=== PATIENT | female | born 1990 | race American Indian/Alaskan Native ===

== ENCOUNTER 2017-07-19 19:23 | Observation (INO) | payer MEDICAID ==
[2017-07-19] MEDS ORDERED: Ketorolac 30 MG/ML SDV IVPUSH ONE (19:30)
[2017-07-19] MEDS ORDERED: Ondansetron 4 MG/2 ML SDV IVPUSH ONE ×2 (19:30→22:11)
[2017-07-19] MEDS: Sodium Chloride 0.9% 1,000 ML IV SCH ×2 (19:45→22:18)
[2017-07-19] MEDS ORDERED: Morphine 4 MG/ML Syringe IVPUSH ONE (20:08)
[2017-07-19] MEDS ORDERED: Sodium Chloride 0.9% 1,000 ML IV SCH (22:15)
[2017-07-19] MEDS ORDERED: Morphine 4 MG/ML Syringe ONE (22:18)
[2017-07-19] MEDS ORDERED: cefTRIAXone 1,000 MG in Sodium Chloride 0.9% 50 ML IV ONE (23:10)
[2017-07-19] MEDS ORDERED: Acetaminophen 325 MG Tab PO ONE (23:10)
--- NOTE | 2017-07-19 23:15 | EDM.PDOC ---
ED HPI GENERAL MEDICAL PROBLEM - General Chief Complaint: Flank Pain Stated Complaint: ABDOMINAL PAIN Time Seen by Provider: 07/19/17 20:00 Source of Information: Reports: Patient, Family History Limitations: Reports: No Limitations - History of Present Illness INITIAL COMMENTS - FREE TEXT/NARRATIVE: c/o R flank pain x 1h pt at [facility] with , felt fine earlier in the day, began to get pain in R flank that became increasing severe, came straight to ED walked into ED bend over in pain and moaning, felt better after Toradol but pain then came back, initially declined MS and then agreed to take it, however said it made her flushed and did not really want to take any more if at all possible h/o ureteral stone 4y ago CT abd/pelvis showed no acute findings, there were very small b/l inytrarenal stones, there was a 4.2 cm L adnexal hypodensity c/w L ovarian cyst on repeat abd exam, pt had more tenderness over the R kidney that the R groin labs c/w R pyelo with WBC 14.7, CRP 1.8 and moderate bacteria in urine WBC 14.7 c/w infection vs pain, curiously pt has had inc'd WBC the last 5 times it has been checked pt dehydration with S.G. > 1.030, ketones 15 there are inc'd LFTs of uncertain etiology, cannot exclude acute cholecystitis, will obtain a RUQ u/s in AM will admit d/t recurrent pain, dehydation and further evaluation of LLQ cyst and inc'd LFTs pt agrees, requested more Toradol as needed, preferred no MS RLQ pain Pain Score (Numeric/FACES): 10 - Related Data Allergies Allergy/AdvReac Type Severity Reaction Status Date / Time amantadine Allergy Rash Verified 03/16/15 12:40 Sulfa (Sulfonamide Allergy Rash Verified 07/19/17 21:02 Antibiotics) Home Meds: Home Meds Acetaminophen/oxyCODONE [Percocet 325-5 MG] 1 tab PO Q4H PRN #20 tablet [Rx] Ibuprofen [Motrin] 600 mg PO Q6H #30 tablet 03/17/15 [Rx] Past Medical History - Past Health History Medical/Surgical History: Denies Medical/Surgical History Gastrointestinal History: Reports: Diverticulosis Other Gastrointestinal History: per Genitourinary History: Reports: Renal Calculus, UTI, Recurrent [employer] History: Reports: , Spontaneous Other OB/BYN History: Gestational diabetes with last , gestational hypertension with third Musculoskeletal History: Reports: Back Pain, Chronic Other Musculoskeletal History: sciatica Neurological History: Reports: None Psychiatric History: Reports: None Endocrine/Metabolic History: Reports: Diabetes, Gestational Dermatologic History: Reports: Other (See Below) Other Dermatologic History: Tatoos left leg, left arm - Past Surgical History Female Surgical History: Reports: Section Social & Family History - Family History Family Medical History: Unobtainable - Tobacco Use Smoking Status *Q: Current Some Day Smoker Years of Tobacco use: 17 Packs/Tins Daily: 0.1 - Caffeine Use Caffeine Use: Reports: Soda - Recreational Drug Use Recreational Drug Use: No ED ROS GENERAL - Review of Systems Review Of Systems: See Below Constitutional: Reports: No Symptoms. Denies: Fever, Chills, Malaise, Weakness , Fatigue, Night Sweats, Diaphoresis, Decreased Appetite HEENT: Reports: No Symptoms Respiratory: Reports: No Symptoms Cardiovascular: Reports: No Symptoms Endocrine: Reports: No Symptoms GI/Abdominal: Reports: Abdominal Pain, Nausea. Denies: Diarrhea, Vomiting : Reports: No Symptoms Musculoskeletal: Reports: No Symptoms Skin: Reports: No Symptoms Neurological: Reports: No Symptoms Psychiatric: Reports: No Symptoms Hematologic/Lymphatic: Reports: No Symptoms Immunologic: Reports: No Symptoms ED EXAM, GI/ABD - Physical Exam Exam: See Below Exam Limited By: No Limitations General Appearance: Alert, WD/WN, Moderate Distress Eyes: Bilateral: Normal Appearance Ears: Normal External Exam, Hearing Grossly Normal Nose: Normal Inspection, Normal Mucosa, No Blood Throat/Mouth: Normal Inspection, Normal Voice, No Airway Compromise Head: Atraumatic, Normocephalic Neck: Normal Inspection, Supple, Non-Tender, Full Range of Motion Respiratory/Chest: No Respiratory Distress, Lungs Clear, Normal Breath Sounds, No Accessory Muscle Use, Chest Non-Tender Cardiovascular: Normal Peripheral Pulses, Regular Rate, Rhythm, No Edema, No Gallop, No Murmur, No Rub GI/Abdominal Exam: Soft, No Distention, No Mass, Other (1-2+ tender at R flank, 1+ tender at RLQ, no CVAT b/l, nl BS x 4) Back Exam: Normal Inspection, Full Range of Motion. No: CVA Tenderness (R), CVA Tenderness (L) Extremities: Normal Inspection, Non-Tender, No Pedal Edema, Normal Capillary Refill Neurological: Alert, Oriented, CN II-XII Intact, Normal Cognition, No Motor/ Sensory Deficits Psychiatric: Normal Affect, Normal Mood Skin Exam: Warm, Dry, Intact, Normal Color, No Rash Lymphatic: No Adenopathy Course - Vital Signs Last Recorded V/S: Last Vital Signs Temp 37.1 C 07/19/17 19:25 Pulse 85 07/19/17 19:25 Resp 20 07/19/17 19:25 BP 111/55 L 07/19/17 19:25 Pulse Ox 100 07/19/17 19:25 - Orders/Labs/Meds Orders: Active Orders 24 hr Category Date Time Status Abdomen Pelvis wo Cont [CT] Stat Exams 07/19/17 19:33 Taken CULTURE URINE [RM] Stat Lab 07/19/17 22:54 Ordered HCG QUALITATIVE,URINE [URCHEM] Stat Lab 07/19/17 20:55 Ordered URINALYSIS W/MICROSCOPIC [UA W/MICROSCOPIC] [URIN] Stat Lab 07/19/17 20:55 Ordered Sodium Chloride 0.9% [Normal Saline] 1,000 ml Med 07/19/17 19:30 Active IV ASDIRECTED Sodium Chloride 0.9% [Normal Saline] 1,000 ml Med 07/19/17 22:15 Active IV ASDIRECTED Medication Orders Sodium Chloride (Normal Saline) 1,000 mls @ 999 mls/hr IV ASDIRECTED CRISTI Last Infusion: 07/19/17 20:46 Dose: 999 mls/hr Admin: 07/19/17 19:45 Dose: 999 mls/hr Sodium Chloride (Normal Saline) 1,000 mls @ 999 mls/hr IV ASDIRECTED CRISTI Last Admin: 07/19/17 22:19 Dose: 999 mls/hr Labs: Laboratory Tests 07/19/17 07/19/17 07/19/17 Range/Units 19:45 19:45 19:45 WBC 14.7 H (4.5-12.0) X10-3/uL RBC 5.26 H (3.23-5.20) x10(6)uL Hgb 14.7 D (11.5-15.5) g/dL Hct 43.6 D (30.0-51.3) % MCV 82.9 (80-96) fL MCH 27.9 (27.7-33.6) pg MCHC 33.7 (32.2-35.4) g/dL RDW 12.7 (11.5-15.5) % Plt Count 425 H (125-369) X10(3)uL MPV 8.9 (7.4-10.4) fL Neut % (Auto) 46.4 (46-82) % Lymph % (Auto) 44.9 H (13-37) % Wirt % (Auto) 5.7 (4-12) % Eos % (Auto) 1 (1.0-5.0) % Baso % (Auto) 2 (0-2) % Neut # (Auto) 6.8 (1.6-8.3) # Lymph # (Auto) 6.6 H (0.6-5.0) # Wirt # (Auto) 0.8 (0.0-1.3) # Eos # (Auto) 0.2 (0.0-0.8) # Baso # (Auto) 0.3 H (0.0-0.2) # Sodium 141 (135-145) mmol/L Potassium 3.9 (3.5-5.3) mmol/L Chloride 106 (100-110) mmol/L Carbon Dioxide 21 (21-32) mmol/L BUN 18 (7-18) mg/dL Creatinine 0.9 (0.55-1.02) mg/dL Est Cr Clr Drug Dosing TNP Estimated GFR (MDRD) > 60 (>60) BUN/Creatinine Ratio 20.0 (9-20) Glucose 160 H (80-116) mg/dL Calcium 8.9 (8.6-10.2) mg/dL Total Bilirubin 0.3 (0.1-1.3) mg/dL AST 43 H (5-25) IU/L ALT 72 H (12-36) U/L Alkaline Phosphatase 115 H (56-112) IU/L C-Reactive Protein 1.8 H (0.5-0.9) mg/dL Total Protein 8.0 (6.0-8.0) g/dL Albumin 3.9 (3.5-5.2) g/dL Globulin 4.1 g/dL Albumin/Globulin Ratio 1.0 Amylase (25-115) U/L Urine Color (YELLOW) Urine Appearance (CLEAR) Urine pH (5.0-6.5) Ur Specific Mcclure (1.010-1.025) Urine Protein (NEGATIVE) mg/dL Urine Glucose (UA) (NEGATIVE) mg/dL Urine Ketones (NEGATIVE) mg/dL Urine Occult Blood (NEGATIVE) Urine Nitrite (NEGATIVE) Urine Bilirubin (NEGATIVE) Urine Urobilinogen (NEGATIVE) mg/dL Ur Leukocyte Esterase (NEGATIVE) Urine RBC (0) Urine WBC (0) Ur Squamous Epith Cells (NS,R,O) Urine Bacteria (NS) Urine Mucus (NS) Urine HCG, Qual (NEGATIVE) 07/19/17 07/19/17 07/19/17 Range/Units 19:45 20:55 20:55 WBC (4.5-12.0) X10-3/uL RBC (3.23-5.20) x10(6)uL Hgb (11.5-15.5) g/dL Hct (30.0-51.3) % MCV (80-96) fL MCH (27.7-33.6) pg MCHC (32.2-35.4) g/dL RDW (11.5-15.5) % Plt Count (125-369) X10(3)uL MPV (7.4-10.4) fL Neut % (Auto) (46-82) % Lymph % (Auto) (13-37) % Wirt % (Auto) (4-12) % Eos % (Auto) (1.0-5.0) % Baso % (Auto) (0-2) % Neut # (Auto) (1.6-8.3) # Lymph # (Auto) (0.6-5.0) # Wirt # (Auto) (0.0-1.3) # Eos # (Auto) (0.0-0.8) # Baso # (Auto) (0.0-0.2) # Sodium (135-145) mmol/L Potassium (3.5-5.3) mmol/L Chloride (100-110) mmol/L Carbon Dioxide (21-32) mmol/L BUN (7-18) mg/dL Creatinine (0.55-1.02) mg/dL Est Cr Clr Drug Dosing Estimated GFR (MDRD) (>60) BUN/Creatinine Ratio (9-20) Glucose (80-116) mg/dL Calcium (8.6-10.2) mg/dL Total Bilirubin (0.1-1.3) mg/dL AST (5-25) IU/L ALT (12-36) U/L Alkaline Phosphatase (56-112) IU/L C-Reactive Protein (0.5-0.9) mg/dL Total Protein (6.0-8.0) g/dL Albumin (3.5-5.2) g/dL Globulin g/dL Albumin/Globulin Ratio Amylase 33 (25-115) U/L Urine Color Yellow (YELLOW) Urine Appearance Slightly cloudy (CLEAR) Urine pH 5.0 (5.0-6.5) Ur Specific Mcclure 1.030 H (1.010-1.025) Urine Protein Negative (NEGATIVE) mg/dL Urine Glucose (UA) Normal (NEGATIVE) mg/dL Urine Ketones 15 H (NEGATIVE) mg/dL Urine Occult Blood Negative (NEGATIVE) Urine Nitrite Negative (NEGATIVE) Urine Bilirubin Small H (NEGATIVE) Urine Urobilinogen 1 H (NEGATIVE) mg/dL Ur Leukocyte Esterase Negative (NEGATIVE) Urine RBC 0-5 (0) Urine WBC 0-5 (0) Ur Squamous Epith Cells Occasional (NS,R,O) Urine Bacteria Moderate H (NS) Urine Mucus Moderate H (NS) Urine HCG, Qual Negative (NEGATIVE) Meds: Medications Generic Name Dose Route Start Last Admin Trade Name Freq PRN Reason Stop Dose Admin Sodium Chloride 1,000 mls @ 999 mls/hr 07/19/17 19:30 07/19/17 20:46 Normal Saline IV Infused ASDIRECTED CRISTI Infusion Sodium Chloride 1,000 mls @ 999 mls/hr 07/19/17 22:15 07/19/17 22:19 Normal Saline IV 999 mls/hr ASDIRECTED CRISTI Administration Discontinued Medications Generic Name Dose Route Start Last Admin Trade Name Freq PRN Reason Stop Dose Admin Ketorolac Tromethamine 30 mg 07/19/17 19:30 07/19/17 19:45 Toradol IVPUSH 07/19/17 19:31 30 mg ONETIME ONE Administration Morphine Sulfate 4 mg 07/19/17 20:08 07/19/17 22:20 Morphine IVPUSH 07/19/17 20:09 4 mg ONETIME ONE Administration Morphine Sulfate Confirm 07/19/17 22:18 07/19/17 22:21 Morphine Administered 07/19/17 22:19 Not Given Dose 4 mg .ROUTE .STK-MED ONE Ondansetron HCl 4 mg 07/19/17 19:30 07/19/17 19:45 Zofran IVPUSH 07/19/17 19:31 4 mg ONETIME ONE Administration Ondansetron HCl 4 mg 07/19/17 22:11 07/19/17 22:18 Zofran IVPUSH 07/19/17 22:12 4 mg ONETIME ONE Administration Departure - Departure Time of Disposition: 23:17 Disposition: Refer to Observation Condition: Good Clinical Impression: Pyelonephritis, Dehydration, Elevated liver function tests, Adnexal mass, Bilateral nephrolithiasis, Elevated C-reactive protein (CRP) - Discharge Information Referrals: PCP,None [Primary Care Provider] - - My Orders Last 24 Hours: My Active Orders 07/19/17 19:30 Sodium Chloride 0.9% [Normal Saline] 1,000 ml IV ASDIRECTED 07/19/17 19:33 Abdomen Pelvis wo Cont [CT] Stat 07/19/17 20:55 HCG QUALITATIVE,URINE [URCHEM] Stat URINALYSIS W/MICROSCOPIC [UA W/MICROSCOPIC] [URIN] Stat 07/19/17 22:15 Sodium Chloride 0.9% [Normal Saline] 1,000 ml IV ASDIRECTED 07/19/17 22:54 CULTURE URINE [RM] Stat - Assessment/Plan Last 24 Hours: My Active Orders 07/19/17 19:30 Sodium Chloride 0.9% [Normal Saline] 1,000 ml IV ASDIRECTED 07/19/17 19:33 Abdomen Pelvis wo Cont [CT] Stat 07/19/17 20:55 HCG QUALITATIVE,URINE [URCHEM] Stat URINALYSIS W/MICROSCOPIC [UA W/MICROSCOPIC] [URIN] Stat 07/19/17 22:15 Sodium Chloride 0.9% [Normal Saline] 1,000 ml IV ASDIRECTED 07/19/17 22:54 CULTURE URINE [RM] Stat
[2017-07-19] MEDS ORDERED: cefTRIAXone 1,000 MG VIAL IV ONE (23:45)
[2017-07-20] MEDS ORDERED: Acetaminophen 325 MG Tab PO PRN (00:19)
[2017-07-20] MEDS ORDERED: Zolpidem 5 MG Tab PO PRN (00:19)
[2017-07-20] MEDS ORDERED: Ondansetron 4 MG/2 ML SDV IV PRN (00:19)
[2017-07-20] MEDS ORDERED: Sodium Chloride 0.9% 1,000 ML IV SCH (00:30)
[2017-07-20] MEDS: Ketorolac 30 MG/ML SDV IVPUSH SCH ×3 (01:43→12:46)
[2017-07-20] MEDS ORDERED: Ciprofloxacin 500 MG Tab PO SCH (09:00)
[2017-07-20 09:25] VITALS: BP 107/68
--- NOTE | 2017-07-20 12:56 | PCM.HP ---
H&P History of Present Illness - General Date of Service: 07/20/17 Admit Problem/Dx: Right sided abdominal pain, question pyelonephritis Source of Information: Patient, Family, Provider History Limitations: Reports: No Limitations, Other (No previous records available from her primary care clinic.) - History of Present Illness Initial Comments - Free Text/Narative: Chief complaint: Right mid to lower quadrant abdominal pain. History of present illness: Patient is a 26-year-old female who was feeling in her usual state of good health yesterday. She and her significant other were here from [place], [place] doing some shopping in [place] and she had the acute onset of right mid to lower abdominal pain which was stabbing in nature. The pain was exquisitely painful. She has had this before with previous ruptured ovarian cysts and the pain was so severe she had exquisite nausea and vomiting 1. She had no diarrhea. She presented to the emergency department and extensive evaluation showed a negative CT abdomen and pelvis, bacteria and mucus in the urine, normal vital signs, and an elevated white count at 14.7. The patient was recommended for admission overnight for observation and initial treatment of presumptive pyelonephritis. Past medical history: Patient has a history of kidney stones and had some potassium of 4 years ago. She's never had any pain with stones passing. Never required any treatment for this. She has a history of emergency room visit March 2017 with similar symptoms and a hospitalization in May 2017 which she tells me was found to be a ruptured ovarian cyst. She previously used Mirena but this was taken out a year ago. Social history: The patient previously smoked a half pack of cigarettes per day but tells me she is quitting. She denies alcohol use. She used to work as a fountain server. She has 5 children, 4 who live with her in [place]. She has a significant other who is here with her today. Family history: The patient's grandfather and cousin had leukemia. The patient has heart disease and diabetes on her mother's side of the family. Otherwise relatives are healthy. Hospital course: Patient did well overnight. Pain was controlled with Toradol and she was eating and drinking. No nausea or vomiting. Ultrasound in the morning of the abdomen and pelvis showed a left ovarian cyst the size of a golf ball and free fluid in the pelvis consistent with a right adnexal area that looked like it was a previous cyst which had ruptured. Official reports are still pending at the time of this dictation. Date of discharge: 07/20/2017. Discharge instructions: Follow-up with your PCP within the week. You should discuss treatment options with Dr. Ashley Bailey for your fatty infiltration of the liver and your ovarian cysts. She can also help you with smoking cessation. RLQ pain Pain Score (Numeric/FACES): 7 - Related Data Allergies/Adverse Reactions: Allergies Allergy/AdvReac Type Severity Reaction Status Date / Time amantadine Allergy Rash Verified 03/16/15 12:40 Sulfa (Sulfonamide Allergy Rash Verified 07/19/17 21:02 Antibiotics) Home Medications: Home Meds Acetaminophen/oxyCODONE [Percocet 325-5 MG] 1 tab PO Q4H PRN #20 tablet [Rx] Ibuprofen [Motrin] 600 mg PO Q6H #30 tablet 03/17/15 [Rx] Past Medical History - Past Health History Medical/Surgical History: Denies Medical/Surgical History Gastrointestinal History: Reports: Diverticulosis Other Gastrointestinal History: per Genitourinary History: Reports: Renal Calculus, UTI, Recurrent [employer]ACH[employer]OR History: Reports: , Spontaneous Other OB/BYN History: Gestational diabetes with last , gestational hypertension with third Musculoskeletal History: Reports: Back Pain, Chronic Other Musculoskeletal History: sciatica Neurological History: Reports: None Psychiatric History: Reports: None Endocrine/Metabolic History: Reports: Diabetes, Gestational Dermatologic History: Reports: Other (See Below) Other Dermatologic History: Tatoos left leg, left arm - Past Surgical History Female Surgical History: Reports: Section Social & Family History - Family History Family Medical History: Unobtainable Respiratory: Reports: COPD Other Respiratory Family Hisory: mother passed of disease - Tobacco Use Smoking Status *Q: Current Some Day Smoker Years of Tobacco use: 17 Packs/Tins Daily: 0 Used Tobacco, but Quit: No Tobacco Use Comment: has quite for 6months at one time Second Hand Smoke Exposure: No - Caffeine Use Caffeine Use: Reports: Soda Other Caffeine Use: one per day - Recreational Drug Use Recreational Drug Use: No H&P Review of Systems - Review of Systems: Review Of Systems: ROS reveals no pertinent complaints other than HPI. (she denies dysuria, frequency, urgency, flank pain, currently feels well. The only residual symptom she has is a slight achiness in the right lower quadrant.) Exam - Exam Exam: See Below - Vital Signs Vital Signs: Last Vital Signs Temp 36.9 C 07/20/17 08:23 Pulse 89 07/20/17 08:23 Resp 16 07/20/17 08:23 BP 107/68 07/20/17 08:23 Pulse Ox 97 07/20/17 08:23 Weight: 109.543 kg - Exam General: Alert, Oriented, Cooperative HEENT: PERRLA, Conjunctiva Clear Neck: Supple Lungs: Clear to Auscultation, Normal Respiratory Effort Cardiovascular: Regular Rate, Regular Rhythm, Normal S1, Normal S2 GI/Abdominal Exam: Normal Bowel Sounds, Soft, Non-Tender (minimally tender right lower/mid quadrant.), No Organomegaly, No Distention, Other (obese) Extremities: No Pedal Edema - Patient Data Lab Results Last 24 hrs: Laboratory Results - last 24 hr 07/19/17 07/19/17 07/19/17 Range/Units 19:45 19:45 19:45 WBC 14.7 H (4.5-12.0) X10-3/uL RBC 5.26 H (3.23-5.20) x10(6)uL Hgb 14.7 D (11.5-15.5) g/dL Hct 43.6 D (30.0-51.3) % MCV 82.9 (80-96) fL MCH 27.9 (27.7-33.6) pg MCHC 33.7 (32.2-35.4) g/dL RDW 12.7 (11.5-15.5) % Plt Count 425 H (125-369) X10(3)uL MPV 8.9 (7.4-10.4) fL Neut % (Auto) 46.4 (46-82) % Lymph % (Auto) 44.9 H (13-37) % Vance % (Auto) 5.7 (4-12) % Eos % (Auto) 1 (1.0-5.0) % Baso % (Auto) 2 (0-2) % Neut # (Auto) 6.8 (1.6-8.3) # Lymph # (Auto) 6.6 H (0.6-5.0) # Vance # (Auto) 0.8 (0.0-1.3) # Eos # (Auto) 0.2 (0.0-0.8) # Baso # (Auto) 0.3 H (0.0-0.2) # Add Manual Diff Neutrophils % (Manual) (46-82) % Band Neutrophils % (0-6) % Lymphocytes % (Manual) (13-37) % Monocytes % (Manual) (4-12) % Eosinophils % (Manual) (0-5) % Sodium 141 (135-145) mmol/L Potassium 3.9 (3.5-5.3) mmol/L Chloride 106 (100-110) mmol/L Carbon Dioxide 21 (21-32) mmol/L Anion Gap BUN 18 (7-18) mg/dL Creatinine 0.9 (0.55-1.02) mg/dL Est Cr Clr Drug Dosing TNP Estimated GFR (MDRD) > 60 (>60) BUN/Creatinine Ratio 20.0 (9-20) Glucose 160 H (80-116) mg/dL Calcium 8.9 (8.6-10.2) mg/dL Total Bilirubin 0.3 (0.1-1.3) mg/dL AST 43 H (5-25) IU/L ALT 72 H (12-36) U/L Alkaline Phosphatase 115 H (56-112) IU/L C-Reactive Protein 1.8 H (0.5-0.9) mg/dL Total Protein 8.0 (6.0-8.0) g/dL Albumin 3.9 (3.5-5.2) g/dL Globulin 4.1 g/dL Albumin/Globulin Ratio 1.0 Amylase (25-115) U/L Urine Color (YELLOW) Urine Appearance (CLEAR) Urine pH (5.0-6.5) Ur Specific Galliano (1.010-1.025) Urine Protein (NEGATIVE) mg/dL Urine Glucose (UA) (NEGATIVE) mg/dL Urine Ketones (NEGATIVE) mg/dL Urine Occult Blood (NEGATIVE) Urine Nitrite (NEGATIVE) Urine Bilirubin (NEGATIVE) Urine Urobilinogen (NEGATIVE) mg/dL Ur Leukocyte Esterase (NEGATIVE) Urine RBC (0) Urine WBC (0) Ur Squamous Epith Cells (NS,R,O) Urine Bacteria (NS) Urine Mucus (NS) Urine HCG, Qual (NEGATIVE) 07/19/17 07/19/17 07/19/17 Range/Units 19:45 20:55 20:55 WBC (4.5-12.0) X10-3/uL RBC (3.23-5.20) x10(6)uL Hgb (11.5-15.5) g/dL Hct (30.0-51.3) % MCV (80-96) fL MCH (27.7-33.6) pg MCHC (32.2-35.4) g/dL RDW (11.5-15.5) % Plt Count (125-369) X10(3)uL MPV (7.4-10.4) fL Neut % (Auto) (46-82) % Lymph % (Auto) (13-37) % Vance % (Auto) (4-12) % Eos % (Auto) (1.0-5.0) % Baso % (Auto) (0-2) % Neut # (Auto) (1.6-8.3) # Lymph # (Auto) (0.6-5.0) # Vance # (Auto) (0.0-1.3) # Eos # (Auto) (0.0-0.8) # Baso # (Auto) (0.0-0.2) # Add Manual Diff Neutrophils % (Manual) (46-82) % Band Neutrophils % (0-6) % Lymphocytes % (Manual) (13-37) % Monocytes % (Manual) (4-12) % Eosinophils % (Manual) (0-5) % Sodium (135-145) mmol/L Potassium (3.5-5.3) mmol/L Chloride (100-110) mmol/L Carbon Dioxide (21-32) mmol/L Anion Gap BUN (7-18) mg/dL Creatinine (0.55-1.02) mg/dL Est Cr Clr Drug Dosing Estimated GFR (MDRD) (>60) BUN/Creatinine Ratio (9-20) Glucose (80-116) mg/dL Calcium (8.6-10.2) mg/dL Total Bilirubin (0.1-1.3) mg/dL AST (5-25) IU/L ALT (12-36) U/L Alkaline Phosphatase (56-112) IU/L C-Reactive Protein (0.5-0.9) mg/dL Total Protein (6.0-8.0) g/dL Albumin (3.5-5.2) g/dL Globulin g/dL Albumin/Globulin Ratio Amylase 33 (25-115) U/L Urine Color Yellow (YELLOW) Urine Appearance Slightly cloudy (CLEAR) Urine pH 5.0 (5.0-6.5) Ur Specific Galliano 1.030 H (1.010-1.025) Urine Protein Negative (NEGATIVE) mg/dL Urine Glucose (UA) Normal (NEGATIVE) mg/dL Urine Ketones 15 H (NEGATIVE) mg/dL Urine Occult Blood Negative (NEGATIVE) Urine Nitrite Negative (NEGATIVE) Urine Bilirubin Small H (NEGATIVE) Urine Urobilinogen 1 H (NEGATIVE) mg/dL Ur Leukocyte Esterase Negative (NEGATIVE) Urine RBC 0-5 (0) Urine WBC 0-5 (0) Ur Squamous Epith Cells Occasional (NS,R,O) Urine Bacteria Moderate H (NS) Urine Mucus Moderate H (NS) Urine HCG, Qual Negative (NEGATIVE) 07/20/17 07/20/17 07/20/17 Range/Units 06:25 06:25 06:25 WBC 15.5 H (4.5-12.0) X10-3/uL RBC 4.14 (3.23-5.20) x10(6)uL Hgb 11.9 (11.5-15.5) g/dL Hct 34.4 (30.0-51.3) % MCV 83.0 (80-96) fL MCH 28.8 (27.7-33.6) pg MCHC 34.7 (32.2-35.4) g/dL RDW 13.0 (11.5-15.5) % Plt Count 276 (125-369) X10(3)uL MPV 8.9 (7.4-10.4) fL Neut % (Auto) (46-82) % Lymph % (Auto) (13-37) % Vance % (Auto) (4-12) % Eos % (Auto) (1.0-5.0) % Baso % (Auto) (0-2) % Neut # (Auto) (1.6-8.3) # Lymph # (Auto) (0.6-5.0) # Vance # (Auto) (0.0-1.3) # Eos # (Auto) (0.0-0.8) # Baso # (Auto) (0.0-0.2) # Add Manual Diff Yes Neutrophils % (Manual) 72 (46-82) % Band Neutrophils % 3 (0-6) % Lymphocytes % (Manual) 20 (13-37) % Monocytes % (Manual) 4 (4-12) % Eosinophils % (Manual) 1 (0-5) % Sodium Cancelled 139 (135-145) mmol/L Potassium Cancelled 3.7 (3.5-5.3) mmol/L Chloride Cancelled 106 (100-110) mmol/L Carbon Dioxide Cancelled 23 (21-32) mmol/L Anion Gap Cancelled BUN Cancelled 11 (7-18) mg/dL Creatinine Cancelled 0.7 (0.55-1.02) mg/dL Est Cr Clr Drug Dosing Cancelled 107.67 Estimated GFR (MDRD) Cancelled > 60 (>60) BUN/Creatinine Ratio Cancelled 15.7 (9-20) Glucose Cancelled 141 H (80-116) mg/dL Calcium Cancelled 8.0 L (8.6-10.2) mg/dL Total Bilirubin 0.5 (0.1-1.3) mg/dL AST 35 H D (5-25) IU/L ALT 57 H D (12-36) U/L Alkaline Phosphatase 77 (56-112) IU/L C-Reactive Protein (0.5-0.9) mg/dL Total Protein 6.3 (6.0-8.0) g/dL Albumin 2.9 L (3.5-5.2) g/dL Globulin 3.4 g/dL Albumin/Globulin Ratio 0.9 Amylase (25-115) U/L Urine Color (YELLOW) Urine Appearance (CLEAR) Urine pH (5.0-6.5) Ur Specific Galliano (1.010-1.025) Urine Protein (NEGATIVE) mg/dL Urine Glucose (UA) (NEGATIVE) mg/dL Urine Ketones (NEGATIVE) mg/dL Urine Occult Blood (NEGATIVE) Urine Nitrite (NEGATIVE) Urine Bilirubin (NEGATIVE) Urine Urobilinogen (NEGATIVE) mg/dL Ur Leukocyte Esterase (NEGATIVE) Urine RBC (0) Urine WBC (0) Ur Squamous Epith Cells (NS,R,O) Urine Bacteria (NS) Urine Mucus (NS) Urine HCG, Qual (NEGATIVE) Result Diagrams: 07/20/17 06:25 07/20/17 06:25 - Problem List (1) Rupture of ovarian cyst SNOMED Code(s): 88491574 ICD Code: N83.209 - UNSPECIFIED OVARIAN CYST, UNSPECIFIED SIDE Status: Acute Current Visit: Yes Problem Details: Given the free fluid in the pelvis , the history of hospitalization and evaluation in March 2017 and May 2017 of ruptured ovarian cyst, it is very likely the patient had another ruptured ovarian cyst. Recommended that she consider hormonal suppression of her cycle for prevention and recommended she follow-up with her primary care provider, Dr. Ashley Bailey at [facility] in [place], to discuss further treatment options. The patient had no symptoms of dysuria and so I don't believe we need to treat urine any further. She will not be discharged home on antibiotic therapy. Patient is eating well. Just a dull ache with the pain was which is responding well to Toradol. Can be discharged home to follow-up with her primary care provider early next week, NSAIDs for pain, return if changing or worsening symptoms. Imaging did show the presence of fatty liver disease. She should discuss treatment options with her primary care provider regarding this. Recommended smoking cessation. Problem List Initiated/Reviewed/Updated: Yes Orders Last 24hrs: Active Orders 24 hr Category Date Time Status Admission Status [Patient Status] [ADT] Routine ADT 07/20/17 00:12 Active Ambulate [RC] PER UNIT ROUTINE Care 07/20/17 00:20 Active Oxygen Therapy [RC] PRN Care 07/20/17 00:20 Active Ready for Discharge [RC] PER UNIT ROUTINE Care 07/20/17 12:48 Active Up ad Nicolasa [RC] ASDIRECTED Care 07/20/17 00:19 Active Vital Signs [RC] 00,04,08,12,16,20 Care 07/20/17 00:20 Active Regular Diet [DIET] Diet 07/20/17 Breakfast Active Abdomen Comp [US] Routine Exams 07/20/17 00:24 Taken Abdomen Pelvis wo Cont [CT] Stat Exams 07/19/17 19:33 Taken Pelvis Non OB Ltd [US] Routine Exams 07/20/17 12:07 Taken Transvaginal Non OB [US] Routine Exams 07/20/17 11:00 Taken CBC WITH AUTO DIFF [HEME] AM Lab 07/21/17 05:11 Ordered CBC WITH AUTO DIFF [HEME] AM Lab 07/22/17 05:11 Ordered CULTURE URINE [RM] Stat Lab 07/19/17 20:55 Ordered HCG QUALITATIVE,URINE [URCHEM] Stat Lab 07/19/17 20:55 Ordered URINALYSIS W/MICROSCOPIC [UA W/MICROSCOPIC] [URIN] Stat Lab 07/19/17 20:55 Ordered Acetaminophen [Tylenol] Med 07/20/17 00:19 Active 650 mg PO Q4H PRN Ciprofloxacin [Ciprofloxacin HCl] Med 07/20/17 09:00 Active 500 mg PO BID Ketorolac [Toradol] Med 07/20/17 01:00 Active 30 mg IVPUSH Q6H Ondansetron [Zofran] Med 07/20/17 00:19 Active 4 mg IV Q4H PRN Sodium Chloride 0.9% [Normal Saline] 1,000 ml Med 07/20/17 00:30 Active IV ASDIRECTED Zolpidem [Ambien] Med 07/20/17 00:19 Active 5 mg PO BEDTIME PRN Resuscitation Status Routine Resus Stat 07/20/17 00:19 Ordered Medication Orders Acetaminophen (Tylenol) 650 mg PO Q4H PRN PRN Reason: Pain (Mild 1-3)/fever Last Admin: 07/20/17 09:19 Dose: 650 mg Ciprofloxacin (Ciprofloxacin Hcl) 500 mg PO BID [facility] Last Admin: 07/20/17 09:18 Dose: 500 mg Sodium Chloride (Normal Saline) 1,000 mls @ 50 mls/hr IV ASDIRECTED [facility] Last Admin: 07/20/17 01:02 Dose: 50 mls/hr Ketorolac Tromethamine (Toradol) 30 mg IVPUSH Q6H [facility] Stop: 07/24/17 19:01 Last Admin: 07/20/17 12:46 Dose: 30 mg Admin: 07/20/17 05:59 Dose: 30 mg Admin: 07/20/17 01:43 Dose: 30 mg Ondansetron HCl (Zofran) 4 mg IV Q4H PRN PRN Reason: Nausea/Vomiting Last Admin: 07/20/17 11:49 Dose: 4 mg Zolpidem Tartrate (Ambien) 5 mg PO BEDTIME PRN PRN Reason: Sleep Assessment/Plan Comment:: As patient was seen for H&P and discharged at the same visit, CODE STATUS was not discussed. ER physician noted CODE STATUS was full code.
--- NOTE | 2017-07-21 08:04 | US ---
INDICATION FOR PELVIC ULTRASOUND: Left ovarian mass on CT. INDICATION FOR TRANSVAGINAL PELVIC ULTRASOUND: Left ovarian mass seen on CT, need transvaginal to further evaluate the right lower quadrant pain/tenderness and better visualization of 4.3 cm left ovarian hypodensity seen on CT. PELVIC ULTRASOUND, NON-OB, LIMITED/ TRANSVAGINAL PELVIC ULTRASOUND: Multiple ultrasonic images were obtained with transabdominal, and then, when transabdominal imaging did not adequately evaluate the right ovary area, transvaginal pelvic ultrasound was utilized. Examination is from 07/20/2017, and there were no comparison pelvic ultrasounds. Comparison CT of the abdomen and pelvis from 07/19/2017 was noted. The uterus measured 9.9 x 4.6 x 6.3 cm with an endometrial cavity echo of 11.1 mm. The right ovary measured 4 x 3.1 x 2 cm with a volume of 12.99 mL. The left ovary measured 4.9 x 3.5 x 3.9 cm for a volume of 35.2 mL, including a left ovarian cyst measuring 3.9 x 2.7 x 3.9 cm. This has the appearance of a simple follicular cyst; however, it is not ideally visualized in some portions, and a followup study in 2 or 6 weeks is recommended to confirm involution. Additionally, a few follicles are noted in the left ovary. The right ovary showed minimal follicles present and several larger follicles also present in a cluster adjacent to the ovary with one relatively large fluid collection which measured approximately 44 mm and may represent a follicular cyst. Followup of this cystic structure is recommended to exclude other than benign disease with repeat ultrasound in two weeks utilizing transvaginal probe. Similarly, the left ovary showed multiple tiny follicles and one almost 4 cm follicular cyst, which could also be re-evaluated in 2 or 6 weeks. No definite free fluid was identified. No definite adnexal mass lesion was seen , other than as mentioned above. The uterus has a somewhat bulky appearance, making it difficult to exclude some minimal intramural fibroid changes. Endometrial cavity echo was slightly prominent but may be on the basis of menstrual cycle. No definite endometrial abnormality was seen. IMPRESSION: 1. 4 cm cystic findings noted at both ovaries. Followup transvaginal pelvic ultrasound recommended in 2 or 6 weeks to demonstrate involution of probable follicular cysts. 2. Somewhat bulky appearing uterus could have some minimal intramural fibroid changes. MTDD
--- NOTE | 2017-07-21 08:26 | US ---
INDICATION: Increased LFTs, right flank pain, question cholecystitis. ABDOMINAL ULTRASOUND, COMPLETE: Multiple ultrasonic images revealed an echogenic appearing liver with an AP diameter of 15.5 cm, suggesting some enlargement. No focal liver lesion was identified. Some minimal pericholecystic fatty sparing in the liver is suggested with relatively normal echogenicity in that area. The IVC was phasic. The aorta was normal in caliber, measuring 1.3 cm maximally. The common bile duct was normal in caliber at 3.7 mm. The gallbladder measured 6.1 x 2.7 x 3.9 cm. The gallbladder had an appearance suggesting minimal polyps with no calculi or pericholecystic fluid. There was an appearance of an 8/10 positive ultrasonic [place] sign, however, which should be correlated clinically - additional examination of the gallbladder may be warranted, such as ultrasound with Kinevac contraction study. Nuclear medicine hepatobiliary imaging may also be helpful. The spleen appeared normal, measuring 9.3 x 4.9 x 4.6 cm. No calculi were seen in the kidneys, despite findings on CT. The kidneys did show evidence of a possible cystic structure measuring 1.7 cm in the upper middle pole of the right kidney. Maximum diameter was 1.9 cm approximately. It is not definitively visualized on the CT scan without IV contrast dated 07/19 but is suspected on sagittal image #35. Contrast examination would be confirmatory, as felt to be clinically necessary. Other etiology, such as a cystic neoplasm, is difficult to entirely exclude with this appearance. The kidneys were otherwise unremarkable without evidence of obstructive uropathy. They measured on the right 11.6 x 4.6 x 6.2 cm and on the left 11 x 5.2 x 5.9 cm. IMPRESSION: 1. 8/10 positive ultrasonic [place] sign, no gallstones seen, minimal gallbladder polyps suggested. Additional workup may be warranted, depending upon clinical correlation. 2. Fatty infiltration of the liver appears fairly prominent with somewhat enlarged liver suggested. 3. Probable small cyst upper middle pole right kidney but difficult to confirm without IV contrast with CT examination. MTDD
== END 2017-07-20 13:30 | disposition home or self-care (01) ==
LOC: FB.ED 19:23 → FB.MS 07-20 00:12
PROVIDERS: ADMIT Emergency Medicine; ATTEND Family Medicine
DX: N83.209 Unspecified ovarian cyst, unspecified side (principal); J44.9 Chronic obstructive pulmonary disease, unspecified; F17.210 Nicotine dependence, cigarettes, uncomplicated; Z88.8 Allergy status to other drugs, medicaments and biological substances; Z88.2 Allergy status to sulfonamides
CPT/HCPCS: 36415; 74176; 76700; 76830; 76857; 80053; 81001; 81025; 82150; 85025; 86140; 87086; 87088; 87186; 96361; 96374; 96375; 96376; 99284; A9270; J0696; J1885; J2270; J2405; J7040; G0378